=== PATIENT | female | born 1975 | race Caucasian/White ===

== ENCOUNTER 2016-04-05 10:06 | Inpatient (IN) | payer OTHER ==
[~2016-04-05] VITALS: Ht 160 cm; Wt 86.9 kg
[~2016-04-05 10:06] MED LIST: ACETAMINOPHEN-1 EAC1 PO; ATARAX,VISTARIL25 MG PO; BACTROBAN OINTM22 GM TP; BENADRYL25 MG PO; CEFDINIR300 MG PO; COLACE100 MG PO; ELIMITE 5% CREA60 GM TP; HYDROXYZINE HCL25 MG PO; IBUPROFEN800 MG PO; MEDROL DOSEPAK4 MG PO; MOTRIN800 MG PO; NAPROSYN500 MG PO; PERCOCET 5/31 TABLET PO; PHENERGAN25 MG PR; PREDNISONE20 MG PO; PREDNISONE50 MG PO; PROMETHAZINE HC25 M1 PO; PROZAC40 MG PO; SKELAXIN800 MG PO; ZANTAC150 MG PO
[2016-04-05 10:48] LABS: HEMATOCRIT 39.1 % (36.0-46.0); MCHC 35.3 G/DL (30.0-36.0); MCV 87.9 FL (83-99); MEAN PLAT.VOLUME 11.6 uM^3 (9.5-12.4); PLATELET COUNT 209 K/uL (156-360); RBC DIS.WIDTH-CV 12.6 % (11.8-14.6); RBC DIS.WIDTH-SD 39.6 % (39-53); RED BLOOD COUNT 4.45 M/uL (3.80-5.20); WHITE BLOOD COUNT 9.6 K/uL (4.1-10.2)
[2016-04-05 10:58] LABS: CHLORIDE 108 mEq/L (99-109); POTASSIUM 3.8 mEq/L (3.7-5.4); SODIUM 140 mEq/L (136-147)
[2016-04-05 11:00] LABS: GLUCOSE 97 mg/dL (70-99)
[2016-04-05 11:02] LABS: ANION GAP 9 MEQ/L (2-14)
[2016-04-05 11:03] LABS: SERUM ETHYL ALCOHOL < 10 mg/dL
[2016-04-05 11:04] LABS: GFR ESTIMATE (CALCULATED) > 59 mL/min/
[2016-04-05 11:05] LABS: UREA NITROGEN (BUN) 8 mg/dL (9-23)
[2016-04-05 11:12] LABS: AMPHETAMINE NEGATIVE (500 ng/mL); BARBITURATES NEGATIVE (200 ng/mL); BENZODIAZEPINES NEGATIVE (150 ng/mL); COCAINE PRESUMPTIVE POSITIVE (150 ng/mL); METHADONE NEGATIVE (200 ng/mL); METHAMPHETAMINE NEGATIVE (500 ng/mL); OPIATES (MORPHINE) NEGATIVE (100 ng/mL); OXYCODONE PRESUMPTIVE POSITIVE (100 ng/mL); PHENCYCLIDINE NEGATIVE (25 ng/mL); PROPOXYPHENE NEGATIVE (300 ng/mL); THC CANNABINOIDS PRESUMPTIVE POSITIVE (50 ng/mL); TRICYCLIC ANTIDEPRESSANTS NEGATIVE (300 ng/mL)
[2016-04-05 11:13] LABS: INTERNAL CONTROLS VALID? YES
[2016-04-05 11:14] LABS: ADD MEDTOX COMMENT Y
[2016-04-05 14:01] VITALS: BP 150/83
[2016-04-05 16:06] VITALS: BP 127/68
[2016-04-06 07:47] VITALS: BP 116/75
[2016-04-06 15:33] VITALS: BP 125/80
[2016-04-07 07:48] VITALS: BP 124/57
[2016-04-07] MEDS ORDERED: EFFEXOR XR37.5 MG PO (09:28)
== END 2016-04-07 10:07 | disposition other institution (70) | DRG 885 ==
LOC: EME 10:06 → EDOF 12:52 → 1WEST 12:52 → EDOF 13:40 → 1WEST 13:57
PROVIDERS: Emergency Medicine
DX: F33.2 Major depressive disorder, recurrent severe without psychotic features (principal); F11.10 Opioid abuse, uncomplicated; R45.851 Suicidal ideations; F14.90 Cocaine use, unspecified, uncomplicated; G43.909 Migraine, unspecified, not intractable, without status migrainosus; F17.210 Nicotine dependence, cigarettes, uncomplicated; Z91.5 Personal history of self-harm
CPT/HCPCS: 80048; 84999; 85027; 90839; 99281; 99285; G0480; Q0177

== ENCOUNTER 2016-09-05 10:15 | Emergency (ER) | payer OTHER ==
[~2016-09-05] VITALS: Ht 160 cm; Wt 87.9 kg
[~2016-09-05 10:15] MED LIST changes: +EFFEXOR XR37.5 MG PO
[2016-09-05] MEDS ORDERED: FIORICET,ESG1 TABLET PO (11:46)
[2016-09-05 11:56] VITALS: BP 122/74
== END 2016-09-05 11:58 | disposition home or self-care (01) ==
LOC: EME 10:15
DX: G43.909 Migraine, unspecified, not intractable, without status migrainosus (principal); F17.200 Nicotine dependence, unspecified, uncomplicated
CPT/HCPCS: 99281; 99283; J1885

== ENCOUNTER 2017-08-12 12:03 | Emergency (ER) | payer OTHER ==
[~2017-08-12] VITALS: Ht 160 cm; Wt 90.9 kg
[~2017-08-12 12:03] MED LIST changes: +FIORICET,ESG1 TABLET PO
[2017-08-12 12:14] VITALS: BP 140/92
== END 2017-08-12 12:30 | disposition left against medical advice (07) ==
LOC: EME 12:03
DX: S99.921A Unspecified injury of right foot, initial encounter (principal); Z53.21 Procedure and treatment not carried out due to patient leaving prior to being seen by health care provider

== ENCOUNTER 2017-08-17 00:47 | Emergency (ER) | payer OTHER ==
[~2017-08-17] VITALS: Ht 160 cm; Wt 88.0 kg
[2017-08-17 04:41] VITALS: BP 138/89
== END 2017-08-17 04:41 | disposition home or self-care (01) ==
LOC: EME 00:47
DX: S60.221A Contusion of right hand, initial encounter (principal); S00.83XA Contusion of other part of head, initial encounter; M54.2 Cervicalgia; Y04.8XXA Assault by other bodily force, initial encounter; Y07.9 Unspecified perpetrator of maltreatment and neglect; F32.9 Major depressive disorder, single episode, unspecified; F17.200 Nicotine dependence, unspecified, uncomplicated; Z88.0 Allergy status to penicillin
CPT/HCPCS: 70450; 70486; 72125; 73130; 80048; 84702; 85027; 93880; 99281; 99284